=== PATIENT | male | born 1945 | race Caucasian/White ===

== ENCOUNTER 2018-07-07 10:47 | Outpatient (CLI) | payer MEDICARE, OTHER ==
--- NOTE | 2018-07-07 12:12 | RAD ---
CERVICAL SPINE FIVE VIEWS: INDICATIONS: Cervical disk degeneration. Neck pain. FINDINGS: The cervical vertebrae maintain normal height. There is posterior listhesis of C5 on C6, measured at approximately 4 mm in the neutral position. This appears to reduce slightly on the flexion and exte nsion views. There is loss of disk space at C5-C6 and C6-C7, with prominent anterior osteophytes. Posterior spond ylosis is present at these levels. There is slight posterior listhesis of C3 on C4, in the neutral position, which is unchanged in exten kira but slightly reduced with flexion. IMPRESSION: Moderate to severe degenerative changes of the mid and lower cervical spine with mild listhesis at C5 -C6 and C3-C4, as described. POS: [facility]
--- NOTE | 2018-07-07 12:43 | MRI ---
MRI CERVICAL SPINE WITHOUT CONTRAST: INDICATIONS: Neck pain. Cervical disk degeneration. TECHNIQUE: Multiplanar, multisequential imaging of the cervical spine obtained. FINDINGS: There are moderate degenerative changes of the cervical spine. Loss of disk space is noted at C5-C6, C6-C7, and C7-T1. Moderate anterior osteophytes are present. There is slight posterior listhesis o f C5 on C6, measured at approximately 4 mm. At C3-C4, a small central disk protrusion combined with spondylosis impinges on a mildly flattened an terior cord. There is evidence of right foraminal stenosis due to facet and uncinate hypertrophy. At C4-C5, disk bulge and spondylosis efface the anterior subarachnoid space and abut the anterior cor d. Right foraminal stenosis secondary to facet and uncinate hypertrophy. At C5-C6, mild posterior listhesis, as described above. Posterior disk bulge and spondylosis flatten the thecal sac and efface the anterior subarachnoid space. These changes abut the anterior cord. T here is evidence of left foraminal stenosis secondary to hypertrophic change. At C6-C7, disk bulge and spondylosis abut the anterior cord. Bilateral foraminal encroachment from f acet and uncinate hypertrophy. At C7-T1, disk bulge and spondylosis flatten the thecal sac. The anterior subarachnoid space is pres erved. There is evidence of bilateral foraminal narrowing secondary to facet and uncinate hypertroph y. Cord signal is normally preserved. IMPRESSION: Multilevel degenerative disk changes. Loss of disk space is most prominent at C5-C6 and C6-C7. Ther e is posterior listhesis at C5-C6. Disk bulge and spondylitic change at several levels impinges on t he cord and produce foraminal stenosis, as described above. CT may be of benefit to better define th e bony hypertrophic changes and the foraminal stenosis, if indicated. POS: [facility]
== END 2018-07-07 10:48 | disposition home or self-care (01) ==
LOC: TBSIIMAG 10:47
PROVIDERS: ATTEND Neurological Surgery
DX: M50.30 Other cervical disc degeneration, unspecified cervical region (principal); M47.892 Other spondylosis, cervical region; M43.12 Spondylolisthesis, cervical region; M50.322 Other cervical disc degeneration at C5-C6 level; M50.821 Other cervical disc disorders at C4-C5 level; M99.81 Other biomechanical lesions of cervical region
CPT/HCPCS: 72050; 72141

== ENCOUNTER 2018-08-05 08:24 | Outpatient (CLI) | payer MEDICARE, OTHER ==
[2018-08-05 09:44] LABS: Hemoglobin 16.2 g/dL (14.0-18.0); Mean Corpuscular HGB CONC 35.1 g/dL (32.0-36.0); Mean Corpuscular Hemoglobin 33.7 pg (27.0-31.0); Mean Platelet Volume 10.4 fL (7.4-10.4); Platelet Count 142 thou/uL (130-400); RBC Distribution Width 12.2 % (11.5-14.5); White Blood Cell (WBC) Count 4.7 thou/uL (4.8-10.8)
[2018-08-05 10:17] LABS: Anion Gap 13 mmol/L (10-20); BUN (Urea Nitrogen) 22 mg/dL (8.4-25.7); Calc. Creatinine Clearance 0 mL/min (70-130); Calcium 9.5 mg/dL (7.8-10.44); Carbon Dioxide 20 mmol/L (23-31); Chloride 110 mmol/L (98-107); Estimated GFR-MDRD 46; Glucose 170 mg/dL (83-110); Potassium 4.2 mmol/L (3.5-5.1); Sodium 139 mmol/L (136-145)
--- NOTE | 2018-08-05 16:10 | EKG ---
Test Reason : Blood Pressure : / mmHG Vent. Rate : 073 BPM Atrial Rate : 073 BPM P-R Int : 206 ms QRS Dur : 144 ms QT Int : 416 ms P-R-T Axes : 059 056 025 degrees QTc Int : 458 ms Sinus rhythm with Premature atrial complexes Right bundle branch block Abnormal ECG No previous ECGs available Confirmed by DR. Grisel CORDON ([id number]) on 08/05/2018 4:10:27 PM Referred By: LISSETTE Confirmed By:DR. Grisel CORDON
== END 2018-08-05 08:25 | disposition home or self-care (01) ==
LOC: LABBT 08:24
PROVIDERS: ATTEND Neurological Surgery
DX: Z01.818 Encounter for other preprocedural examination (principal); M54.12 Radiculopathy, cervical region
CPT/HCPCS: 80048; 85027; 93005; 93010

== ENCOUNTER 2018-08-15 06:19 | Day surgery (SDC) | payer MEDICARE, OTHER ==
[2018-08-05 08:51] VITALS: BMI 28.5
[2018-08-15] MEDS ORDERED: CEFAZOLIN/Water 2 GM/20 ML SYRINGE ONE (06:42)
[2018-08-15] MEDS ORDERED: Sodium Chloride 0.9% 10 ML ONE (07:26)
[2018-08-15] MEDS ORDERED: Fentanyl 100 MCG/2 ML VIAL ONE ×2 (07:46→09:36)
[2018-08-15] MEDS ORDERED: Midazolam HCl 2 mg/2 ml Vial ONE (07:57)
--- NOTE | 2018-08-15 09:28 | OP ---
DATE OF PROCEDURE: 08/14/2018 SURGEON: Mg Cain M.D. CLASS A LINEMAN: David Doyle PROCEDURES: Anterior cervical discectomy C5-6 and C6-7, interbody arthrodesis, intravertebral biomec hanical device, local morcellized autograft, demineralized bone matrix, anterior titanium instrumenta tion C5-C7. PROCEDURE IN DETAIL: The patient was brought to the operating room and intubated. He was positioned supine with the head in modest extension on a gel-filled donut. Incision was made in the right prec ervical area and dissecting medial to the sternocleidomastoid muscle, identified the anterior cervica l spine and our level was confirmed by x-ray. We debrided extensive anterior osteophytes and placed distraction across the disc space and using the operating microscope and microdissection techniques, it is completely decompressed and removed the C5-6 and C6-7 discs and bone spurs to the level of the dura bilaterally. After complete decompression had been secured, the bony endplates were decorticate d for the purpose of arthrodesis and appropriately sized intravertebral biomechanical PEEK device was brought into the field and filled with demineralized bone matrix and local morselized autograft, and tapped into place securely at C5-6 and C6-7. Next, an anterior plate was brought in the field and s ecured to C5, C6, and C7 using two 14 mm screws at each level. The wound was then extensively irriga enrique, immaculate hemostasis was secured, and the wound was closed in anatomic layers.
[2018-08-15] MEDS ORDERED: tiZANidine HCl 4 MG TAB ONE (09:55)
[2018-08-15] MEDS ORDERED: Morphine 4 MG/ML VIAL ONE (10:36)
[2018-08-15] MEDS ORDERED: Ondansetron HCl/PF 4 MG/2 ML Vial ONE (11:31)
[2018-08-15] MEDS ORDERED: ePHEDrine/0.9% NaCl/PF SYRINGE 50 mg/10 ml ONE (11:31)
[2018-08-15] MEDS ORDERED: Calcium Chloride 1 GM/10 ML Abboject SYRINGE ONE (11:31)
[2018-08-15] MEDS ORDERED: PROPOFOL 200 MG/20 ML VIAL ONE (11:31)
[2018-08-15] MEDS ORDERED: PHENYLEPHRINE-NS 100 MCG/ML 10 ML SYRINGE ONE (11:31)
[2018-08-15] MEDS ORDERED: Dexamethasone 20 MG/5 ML VIAL ONE (11:31)
[2018-08-15] MEDS ORDERED: Glycopyrrolate 0.2 MG/ML 5 ML SYRINGE ONE (11:31)
== END 2018-08-15 12:07 | disposition home or self-care (01) ==
LOC: SDC 06:19
PROVIDERS: ATTEND Neurological Surgery
PROC: 0RG20A0 Fusion of 2 or more Cervical Vertebral Joints with Interbody Fusion Device, Anterior Approach, Anterior Column, Open Approach (ICD-10-PCS; principal; 2018-08-15)
PROC: 0RT30ZZ Resection of Cervical Vertebral Disc, Open Approach (ICD-10-PCS; 2018-08-15)
DX: M47.22 Other spondylosis with radiculopathy, cervical region (principal); M48.02 Spinal stenosis, cervical region; M48.061 Spinal stenosis, lumbar region without neurogenic claudication; M51.36 Other intervertebral disc degeneration, lumbar region; Z85.46 Personal history of malignant neoplasm of prostate; Z79.84 Long term (current) use of oral hypoglycemic drugs; Z79.82 Long term (current) use of aspirin; Z79.899 Other long term (current) drug therapy
CPT/HCPCS: 76001; 96374; 96375; A4216; C1713; C1776; J1100; J2250; J2270; J2405; J2704; J3010; J3490

== ENCOUNTER 2018-08-30 15:51 | Outpatient (CLI) | payer MEDICARE, OTHER | END 2018-08-30 15:52 | disposition home or self-care (01) | LOC: TBSIIMAG 15:51 | PROVIDERS: ATTEND Neurological Surgery | DX: M47.22 Other spondylosis with radiculopathy, cervical region (principal) | CPT/HCPCS: 72040 ==

== ENCOUNTER 2018-10-13 15:33 | Outpatient (CLI) | payer MEDICARE, OTHER ==
--- NOTE | 2018-10-13 16:29 | RAD ---
FOUR VIEWS CERVICAL SPINE: 10/13/18 INDICATION: Followup neck surgery. COMPARISON: Prior exam dated 08/30/18. FINDINGS: The ACDF spanning C5 through C7 is unchanged in position. The slight kyphotic angulation at C4-5 is s imilar appearing. There is disc degenerative disease with osteoarthritic change is stable. Prevertebr al soft tissues are prominent likely reflective of some interval decrease in edema in the operative s ite. Lung apices are clear. IMPRESSION: Stable ACDF of C5 through C7. POS: [facility]
== END 2018-10-13 15:34 | disposition home or self-care (01) ==
LOC: TBSIIMAG 15:33
PROVIDERS: ATTEND Neurological Surgery
DX: M48.02 Spinal stenosis, cervical region (principal); Z98.1 Arthrodesis status
CPT/HCPCS: 72040